=== PATIENT | male | born 1990 | race Caucasian/White ===

== ENCOUNTER 2022-07-30 16:23 | Emergency (ER) | payer MEDICAID, OTHER ==
[~2022-07-30] VITALS: Ht 175.3 cm; Wt 95.3 kg
[2022-07-30 16:24] VITALS: BP 150/105
--- NOTE | 2022-07-30 16:34 | NUR ---
PT AMB TO BED 12.
--- NOTE | 2022-07-30 16:44 | NUR ---
32M PRESENTS TO ED WITH C/O OF RIGHT SIDED FACIAL SWELLING DUE TO TOOTH INFECTION X 2 DAYS. PT WAS SEEN AT DENTIST YESTERDAY AND GIVEN RX OF AMOXICILLIN AND IBUPROFEN AND WAS TOLD TO RETURN NEXT WEEK FOR TOOTH EXTRACTION. PT REFERRED BY DENTIST TO ED TODAY FOR FURTHER EVALUATION OF FACIAL SWELLING. PT DENIES PAIN, FEVER, CHILLS, AND SOB. PT SPEAKING IN CLEAR FULL SENTENCES.
[2022-07-30] MEDS ORDERED: AMOX1TAB8 PO (17:26)
--- NOTE | 2022-07-30 17:38 | NUR ---
Patient discharged with v/s stable. Written and verbal after care instructions ABOUT DENTAL ABSCESS given and explained. Patient alert, oriented and verbalized understanding of instructions. Ambulatory with steady gait. All questions addressed prior to discharge. ID band removed. Patient advised to follow up with PMD. Rx of AMOX-CLAV [id number] given. Patient educated on indication of medication including possible reaction and side effects. Opportunity to ask questions provided and answered.
== END 2022-07-30 17:38 | disposition home or self-care (01) ==
LOC: MED 16:23
DX: K04.7 Periapical abscess without sinus (principal); Z79.899 Other long term (current) drug therapy
CPT/HCPCS: 99283